=== PATIENT | male | born 1960 | race Caucasian/White ===

== ENCOUNTER 2023-02-14 06:53 | Day surgery (SDC) | payer OTHER ==
[2023-02-14] MEDS ORDERED: Propofol 200 MG/20 ML SDV IV ONE (06:54)
[2023-02-14] MEDS ORDERED: Lactated Ringers 1,000 ML IV SCH (07:00)
[2023-02-14] MEDS ORDERED: Sodium Chloride 0.9% 10 ML Syringe FLUSH PRN (07:00)
[2023-02-14 08:11] VITALS: BP 146/92; PULSE 69
[2023-02-14] MEDS ORDERED: Simethicone Drops 40 MG/0.6 ML 30 ML Bottle PO ONE (08:57)
== END 2023-02-14 09:45 | disposition home or self-care (01) ==
LOC: FB.SDS 06:53
PROVIDERS: ATTEND Surgery
DX: K31.84 Gastroparesis (principal); K29.80 Duodenitis without bleeding; K21.9 Gastro-esophageal reflux disease without esophagitis; E78.5 Hyperlipidemia, unspecified; Z79.899 Other long term (current) drug therapy; Z98.890 Other specified postprocedural states; Z87.891 Personal history of nicotine dependence
CPT/HCPCS: 00731; 43239; 88305; A9270; J2704; J7120

== ENCOUNTER 2024-11-09 06:52 | Day surgery (SDC) | payer MEDICARE, OTHER ==
[2024-11-09] MEDS ORDERED: Lidocaine 2% 100 MG/5 ML Syringe IVPUSH ONE (06:53)
[2024-11-09] MEDS ORDERED: Glycopyrrolate 0.2 MG/ML 5 ML MDV IV ONE (06:53)
[2024-11-09] MEDS ORDERED: Propofol 200 MG/20 ML SDV IV ONE (06:53)
[2024-11-09] MEDS ORDERED: Sodium Chloride 0.9% 10 ML Syringe FLUSH PRN (07:00)
[2024-11-09] MEDS: Lactated Ringers 1,000 ML IV SCH (07:58)
[2024-11-09] MEDS: Simethicone Drops 40 MG/0.6 ML 30 ML Bottle ONE (08:27)
[2024-11-09 10:47] VITALS: BP 116/72; PULSE 88
== END 2024-11-09 09:55 | disposition home or self-care (01) ==
LOC: FB.SDS 06:52
PROVIDERS: ATTEND Surgery
DX: Z12.11 Encounter for screening for malignant neoplasm of colon (principal); D12.6 Benign neoplasm of colon, unspecified; K57.30 Diverticulosis of large intestine without perforation or abscess without bleeding; K21.9 Gastro-esophageal reflux disease without esophagitis; E78.5 Hyperlipidemia, unspecified; Z79.899 Other long term (current) drug therapy
CPT/HCPCS: 45385; 88305; A9270; J1596; J2704; J7120; 00811